=== PATIENT | male | born 1935 | race Caucasian/White ===

== ENCOUNTER → 2017-03-18 | Outpatient (CLI) | payer OTHER, MEDICARE ==
[~2017-03-18] MED LIST: AMLO-110 PO; ASPEC325 PO; ASPI81TA28 PO; ATEN-175 PO; CHOL100010 PO; EPP3/2 IM; FINA5TAB PO; HYDC25 PO; LATA0.009 OPB; LISI40TA PO; NTRGSL/4 UT; TIMO0.2527 OPB; ZCR40 PO
[2017-03-18 11:00] LABS: BASO % 0.7 %; BASO ABS # 0.04 K/uL (0-0.2); COMPLETE YES; EOS % 3.3 %; HEMATOCRIT 43.3 % (42-52); IG% 0.7 %; LYMPH % 14.8 %; LYMPH ABS # 0.85 K/uL (1.2-3.4); MEAN CELL VOLUME 88.2 fL (80-100); MEAN CORPUSCULAR HEMOGLOBIN 29.5 pg (25-34); MEAN CORPUSCULAR HGB CONC 33.5 g/dl (32-36); MEAN PLATELET VOLUME 9.9 fL (7.4-10.4); MONO % 12.2 %; NEUT % 68.3 %; PLATELET COUNT 209 K/uL (130-400); RED BLOOD COUNT 4.91 M/uL (4.7-6.1); WHITE BLOOD COUNT 5.75 K/uL (4.8-10.8)
[2017-03-18 11:20] LABS: ALT/SGPT 23 U/L (12-78); BLOOD UREA NITROGEN 24 mg/dl (7-18); BUN/CREATININE RATIO 22.2 (10-20); CARBON DIOXIDE 29 mmol/L (21-32); CHLORIDE 103 mmol/L (98-107); CHOLESTEROL 143 mg/dl (0-200); GLUCOSE 90 mg/dl (70-99); POTASSIUM 3.7 mmol/L (3.5-5.1); SODIUM 140 mmol/L (136-145)
[2017-03-18 11:22] LABS: CALCIUM 9.2 mg/dl (8.5-10.1)
[2017-03-18 11:31] LABS: ALB/GLOB RATIO 1.1 (0.9-2); ALKALINE PHOSPHATASE 43 U/L (45-117); AST/SGOT 22 U/L (15-37); CHOLESTEROL/HDL RATIO 3.6; HDL CHOLESTEROL 40 mg/dl; LDL CHOLESTEROL CALCULATED 77 mg/dl; TRIGLYCERIDES 129 mg/dl (0-150); VERY LOW DENSITY LIPOPROT CALC 26 mg/dl
== END | disposition home or self-care (01) ==
LOC: C.LABBC 08:30
PROVIDERS: ATTEND Internal Medicine Geriatric Medicine
DX: I10 Essential (primary) hypertension (principal); E78.5 Hyperlipidemia, unspecified; R10.9 Unspecified abdominal pain; R19.7 Diarrhea, unspecified; I25.10 Atherosclerotic heart disease of native coronary artery without angina pectoris; C82.90 Follicular lymphoma, unspecified, unspecified site

== ENCOUNTER → 2017-04-08 | Outpatient (CLI) | payer OTHER, MEDICARE | END | disposition home or self-care (01) | LOC: C.LABBC 07:42 | PROVIDERS: ATTEND Internal Medicine Geriatric Medicine | DX: K58.9 Irritable bowel syndrome, unspecified (principal); R19.7 Diarrhea, unspecified; A04.7 Enterocolitis due to Clostridium difficile ==

== ENCOUNTER → 2017-04-23 | Day surgery (SDC) | payer OTHER, MEDICARE ==
[2017-04-21 14:03] VITALS: Ht 180.3 cm; Wt 72.3 kg
[~2017-04-23] VITALS: Ht 180.3 cm; Wt 72.3 kg
[~2017-04-23] MED LIST changes: -ASPEC325 PO; -EPP3/2 IM; +LIDOCAINE HCL 2% 2 ML VIAL (20MG/ML) ONE; +PROPOFOL IV EMULSION 10 MG/ML 20 ML VIAL IV ONE
--- NOTE | 2017-04-23 13:34 | Endo History and Physical ---
History & Physical Date of Service: Apr 23, 2017. Chief Complaint: weight loss Referring Physician: Dr Kami Gunter History of Present Illness For EGD Past Medical History Male Genitourinary Prob., Glaucoma, Cancer, High Cholesterol, CABG, Heart Disease, Hypertension Past Surgical History Hx Cardiac Surgery: Yes (CABG X4 VESSELS) Hx Internal Defibrillator: No Hx Pacemaker: No Hx Abdominal Surgery: Yes (GALLBLADDER) Hx of Implantable Prosthesis: No Hx Post-Op Nausea and Vomiting: No Hx Cancer Surgery: No Hx Thoracic Surgery: No Hx Orthopedic: No Hx Urinary Tract Surgery: No Family History None Social History Smoking Status: Never Smoker Hx Substance Use: No Hx Alcohol Use: No Allergies Coded Allergies: Penicillins (Verified Allergy, Mild, RASH, 04/21/17) Current Medications Reported Home Medications Medications Dose Route/Sig Max Daily Dose Days Date Category Dose Instructions Aspirin Ec (Aspirin) 81 Mg Tab 81 Mg PO QAM 04/21/17 Reported Vitamin D (Cholecalciferol) 1,000 Inter.unit Tab 1,000 Inter.unit PO 2XWK 06/17/16 Reported WEDNESDAY AND WEDNESDAY Simvastatin 40 Mg Tab 40 Mg PO HS 11/25/14 Reported Nitrostat (Nitroglycerin) 0.4 Mg Tab 0.4 Mg UT PRN 09/08/11 Reported Norvasc (Amlodipine Besylate) 5 Mg Tab 5 Mg PO QPM 09/08/10 Reported Xalatan 0.005% Oph (Latanoprost) Soln 1 Drop OPB HS 07/31/07 Reported Timoptic-Xe 0.25% Oph (Timolol Maleate) Soln 1 Drop OPB QAM 07/31/07 Reported Zestril (Lisinopril) 40 Mg Tab 40 Mg PO QAM 08/23/07 Reported Hctz * (Hydrochlorothiazide) 25 Mg Tab 25 Mg PO QAM 07/30/07 Reported Proscar (Finasteride) 5 Mg Tab 5 Mg PO QPM 07/30/07 Reported Tenormin (Atenolol) 100 Mg Tab 100 Mg PO QAM 07/30/07 Reported Vital Signs Weight (Kilograms): 72.27 Height (Feet): 5 Height (Inches): 11 Physical Exam General Appearance: WD/WN Respiratory/Chest: Respiratory effort: no dyspnea Cardiovascular: Heart Auscultation: RRR Abdomen: Inspection & Palpation: soft Assessment and Plan Weight loss for EGD
--- NOTE | 2017-04-23 13:53 | Discharge Instructions ---
Endoscopy Patient Instructions Date / Procedure(s) Performed Apr 23, 2017. EGD Allergy Information Coded Allergies: Penicillins (Verified Allergy, Mild, RASH, 04/21/17) Discharge Date / Findings Apr 23, 2017. Pyloric stenosis Medication Instructions Stopped Medication(s): took ASA yesterday Restart Stopped Medication(s): resume meds Reported Home Medications Medications Dose Route/Sig Max Daily Dose Days Date Category Dose Instructions Aspirin Ec (Aspirin) 81 Mg Tab 81 Mg PO QAM 04/21/17 Reported Vitamin D (Cholecalciferol) 1,000 Inter.unit Tab 1,000 Inter.unit PO 2XWK 06/17/16 Reported WEDNESDAY AND WEDNESDAY Simvastatin 40 Mg Tab 40 Mg PO HS 11/25/14 Reported Nitrostat (Nitroglycerin) 0.4 Mg Tab 0.4 Mg UT PRN 09/08/11 Reported Norvasc (Amlodipine Besylate) 5 Mg Tab 5 Mg PO QPM 09/08/10 Reported Xalatan 0.005% Oph (Latanoprost) Soln 1 Drop OPB HS 07/31/07 Reported Timoptic-Xe 0.25% Oph (Timolol Maleate) Soln 1 Drop OPB QAM 07/31/07 Reported Zestril (Lisinopril) 40 Mg Tab 40 Mg PO QAM 08/23/07 Reported Hctz * (Hydrochlorothiazide) 25 Mg Tab 25 Mg PO QAM 07/30/07 Reported Proscar (Finasteride) 5 Mg Tab 5 Mg PO QPM 07/30/07 Reported Tenormin (Atenolol) 100 Mg Tab 100 Mg PO QAM 07/30/07 Reported Provider Instructions Activity Restrictions - No exercising or heavy lifting for 24 hours. - Do not drink alcohol the day of the procedure. - Do not drive a car or operate machinery until the day after the procedure. - Do not make any important decisions or sign important papers in 24 hours after the procedure. Following Day: - Return to full activity which may include returning to work/school. Diet Start your diet with liquids and light foods (jello, soup, juice, toast). Then eat your usual diet if not nauseated. Treatment For Common After Affects For mild abdominal pain, bloating, or excessive gas: - Rest - Eat lightly - Lie on right side Follow-Up Information Follow-up with Dr. Audi Gunter as scheduled Anesthesia Information What You Should Know You have had a procedure that required some medicine to reduce anxiety and discomfort. This treatment is called moderate sedation. After receiving the treatment, you may be sleepy, but you will be able to breathe on your own. The effects of the treatment may last for several hours. Follow these instructions along with Activity/Diet recommendations noted above: * Do NOT do anything where dizziness or clumsiness would be dangerous. * Rest quietly at home today, then you can be up and about tomorrow. * Have a responsible person stay with you the rest of today. * You may have had an I.V. today. If so, you may take the dressing off later today. Recommendations Call your doctor if: * Trouble breathing * Continuous vomiting for more than 24 hours * Temperature above 101 degrees * Severe abdominal pain or bloating * Pain not relieved by pain medicine ordered * There is increased drainage or redness from any incision * A large amount of rectal bleeding greater than 2-3 tablespoons. (If you had a polyp/s removed or have hemorrhoids, a small amount of blood - from the rectum is to be expected.) * You have any unanswered questions or concerns. IN THE EVENT OF A SERIOUS EMERGENCY, GO TO THE NEAREST EMERGENCY ROOM Your discharge instructions were prepared by provider Rito Park. Patient Instructions Signature Page Berta Gongora Patient (or Guardian) Signature/Date: I have read and understand the instructions given to me by my caregivers. Caregiver/RN/Doctor Signature/Date: The above-named patient and/or guardian has received patient instructions on this date. + Original Patient Signature Page (only) stays with chart. Please make copy for patient.
--- NOTE | 2017-04-23 13:58 | GI REPORT ---
Procedure Date: 04/23/2017 1:11 PM Procedure: Upper GI endoscopy Indications: Weight loss Medicines: Propofol total dose 220 mg IV, Lidocaine 80 mg IV Complications: No immediate complications. Estimated Blood Loss: Estimated blood loss was minimal. Procedure: Pre-Anesthesia Assessment: - Prior to the procedure, a History and Physical was performed, and patient medications, allergies and sensitivities were reviewed. The patient's tolerance of previous anesthesia was reviewed. - The risks and benefits of the procedure and the sedation options and risks were discussed with the patient. All questions were answered and informed consent was obtained. After obtaining informed consent, the endoscope was passed under direct vision. Throughout the procedure, the patient's blood pressure, pulse, and oxygen saturations were monitored continuously. The scope was introduced through the mouth, and advanced to the second part of duodenum. The upper GI endoscopy was technically difficult and complex due to abnormal anatomy. The patient tolerated the procedure well. Findings: The examined esophagus was normal. A benign-appearing, intrinsic severe stenosis was found at the pylorus. This was non-traversed. A TTS dilator was passed through the scope. Dilation with a 15-16.5-18 mm pyloric balloon dilator was performed. The dilation site was examined following endoscope reinsertion and showed complete resolution of luminal narrowing. Estimated blood loss was minimal. The 2nd part of the duodenum was normal. Biopsies for histology were taken with a cold forceps for evaluation of celiac disease. Estimated blood loss was minimal. Impression: - Normal esophagus. - Gastric stenosis was found at the pylorus. Dilated. - Normal 2nd part of the duodenum. Biopsied. Recommendation: - Discharge patient to home (ambulatory). - Continue present medications. - Await pathology results. - Return to primary care physician PRN. Rito Park M.D. Rito Park MD 04/23/2017 1:58:07 PM This report has been signed electronically. Note Initiated On: 04/23/2017 1:11 PM I attest to the content of the Intraoperative Record and orders documented therein, exceptions below
[2017-04-23 14:33] VITALS: BP 134/72; PULSE 57; O2SAT 98
--- NOTE | 2017-04-23 14:49 | Anesthesiology Progress Note ---
Anesthesia Post Op Note Date & Time Apr 23, 2017 at 14:49 Vital Signs Pain Intensity: 0 Vital Signs Past 12 Hours Date Time Temp Pulse Resp B/P (MAP) Pulse Ox O2 Delivery O2 Flow Rate FiO2 04/23/17 14:15 55 20 121/62 (81) 97 Room Air 04/23/17 14:00 54 20 120/71 (87) 97 Room Air 04/23/17 13:20 36.7 55 18 170/90 (116) 96 Room Air Notes Mental Status: alert / awake / arousable, participated in evaluation Pt Amnestic to Procedure: Yes Nausea / Vomiting: adequately controlled Pain: adequately controlled Airway Patency, RR, SpO2: stable & adequate BP & HR: stable & adequate Hydration State: stable & adequate Anesthetic Complications: no major complications apparent
== END | disposition home or self-care (01) ==
LOC: C.GI 12:49
PROVIDERS: ATTEND Internal Medicine Gastroenterology
DX: R63.4 Abnormal weight loss (principal); K22.2 Esophageal obstruction; E78.00 Pure hypercholesterolemia, unspecified; I10 Essential (primary) hypertension; Z95.1 Presence of aortocoronary bypass graft; Z90.49 Acquired absence of other specified parts of digestive tract; Z79.82 Long term (current) use of aspirin; K31.1 Adult hypertrophic pyloric stenosis

== ENCOUNTER → 2017-11-17 | Outpatient (CLI) | payer OTHER, MEDICARE ==
[~2017-11-17] MED LIST changes: -LIDOCAINE HCL 2% 2 ML VIAL (20MG/ML) ONE; -PROPOFOL IV EMULSION 10 MG/ML 20 ML VIAL IV ONE
[2017-11-17 09:31] LABS: BASO % 0.5 %; BASO ABS # 0.04 K/uL (0-0.2); EOS % 4.4 %; EOS ABS # 0.35 K/uL (0-0.5); HEMATOCRIT 42.8 % (42-52); HEMOGLOBIN 14.4 g/dL (14.0-18.0); IG# 0.05 K/uL (0.00-0.02); LYMPH % 14.5 %; LYMPH ABS # 1.15 K/uL (1.2-3.4); MEAN CORPUSCULAR HEMOGLOBIN 29.9 pg (25-34); MEAN CORPUSCULAR HGB CONC 33.6 g/dl (32-36); MEAN PLATELET VOLUME 9.7 fL (7.4-10.4); MONO % 13.4 %; MONO ABS # 1.06 K/uL (0.11-0.59); NEUT % 66.6 %; NEUT ABS # 5.28 K/uL (1.4-6.5); PLATELET COUNT 189 K/uL (130-400); RED CELL DISTRIBUTION WIDTH CV 13.8 % (11.5-14.5); RED CELL DISTRIBUTION WIDTH SD 44.9 fL (36.4-46.3); WHITE BLOOD COUNT 7.93 K/uL (4.8-10.8)
[2017-11-17 10:10] LABS: BLOOD UREA NITROGEN 27 mg/dl (7-18); CALCIUM 9.5 mg/dl (8.5-10.1); CARBON DIOXIDE 32 mmol/L (21-32); CREATININE 1.09 mg/dl (0.60-1.40); GLUCOSE 89 mg/dl (70-99); POTASSIUM 3.6 mmol/L (3.5-5.1); SODIUM 136 mmol/L (136-145)
== END | disposition home or self-care (01) ==
LOC: C.LAB 08:48
PROVIDERS: ATTEND Internal Medicine Geriatric Medicine
DX: I10 Essential (primary) hypertension (principal); I25.10 Atherosclerotic heart disease of native coronary artery without angina pectoris; C82.90 Follicular lymphoma, unspecified, unspecified site

== ENCOUNTER → 2018-01-06 | Outpatient (CLI) | payer OTHER, MEDICARE | END | disposition home or self-care (01) | LOC: C.LAB 08:01 | PROVIDERS: ATTEND Internal Medicine Cardiovascular Disease | DX: I10 Essential (primary) hypertension (principal); I25.10 Atherosclerotic heart disease of native coronary artery without angina pectoris; E78.5 Hyperlipidemia, unspecified ==

== ENCOUNTER → 2018-05-16 | Outpatient (CLI) | payer OTHER, MEDICARE ==
[~2018-05-16] MED LIST changes: -AMLO-110 PO; +AMLO5TAB3 PO
[2018-05-16 13:52] LABS: BASO % 0.7 %; BASO ABS # 0.04 K/uL (0-0.2); EOS % 3.8 %; EOS ABS # 0.21 K/uL (0-0.5); HEMATOCRIT 39.1 % (42-52); HEMOGLOBIN 13.2 g/dL (14.0-18.0); IG# 0.03 K/uL (0.00-0.02); LYMPH % 18.7 %; LYMPH ABS # 1.03 K/uL (1.2-3.4); MEAN CELL VOLUME 88.1 fL (80-100); MEAN CORPUSCULAR HEMOGLOBIN 29.7 pg (25-34); MEAN CORPUSCULAR HGB CONC 33.8 g/dl (32-36); MEAN PLATELET VOLUME 9.9 fL (7.4-10.4); MONO % 11.8 %; MONO ABS # 0.65 K/uL (0.11-0.59); NEUT % 64.5 %; NEUT ABS # 3.55 K/uL (1.4-6.5); PLATELET COUNT 191 K/uL (130-400); RED CELL DISTRIBUTION WIDTH CV 13.8 % (11.5-14.5); RED CELL DISTRIBUTION WIDTH SD 43.9 fL (36.4-46.3); WHITE BLOOD COUNT 5.51 K/uL (4.8-10.8)
== END | disposition home or self-care (01) ==
LOC: C.LABBC 10:10
PROVIDERS: ATTEND Family Medicine Adult Medicine
DX: C82.90 Follicular lymphoma, unspecified, unspecified site (principal); K31.1 Adult hypertrophic pyloric stenosis; R53.83 Other fatigue

== ENCOUNTER → 2018-06-08 | Day surgery (SDC) | payer OTHER, MEDICARE ==
[2018-05-31 13:54] VITALS: Ht 180.3 cm; Wt 76.8 kg
[~2018-06-08] VITALS: Ht 180.3 cm; Wt 76.8 kg
[~2018-06-08] MED LIST changes: -CHOL100010 PO; +CHOL1TAB53 PO; +EPP3/2 IM; -HYDC25 PO; +HYDR25TA4 PO; +LATA0.009 OP; -LATA0.009 OPB; +LIDOCAINE HCL 2% 2 ML VIAL (20MG/ML) ONE; +MIRT1TAB27 PO; +PROB1TAB16 PO; +PROPOFOL IV EMULSION 10 MG/ML 20 ML VIAL ONE; +PSYL48.59 PO; -TIMO0.2527 OPB; +TMPXEOPS OPB
--- NOTE | 2018-06-08 13:28 | Endo History and Physical ---
History & Physical Date of Service: Jun 08, 2018. Chief Complaint: dysphagia Referring Physician: Dr Calvin History of Present Illness For EGD Past Medical History Male Genitourinary Prob., Glaucoma, Cancer, High Cholesterol, CABG, Heart Disease, Hypertension Past Surgical History Hx Cardiac Surgery: Yes [place] [place] Hx Internal Defibrillator: No Hx Pacemaker: No Hx Abdominal Surgery: Yes (GALLBLADDER) Hx Post-Op Nausea and Vomiting: No Hx Cancer Surgery: No Hx Thoracic Surgery: No Hx Orthopedic: No Hx Urinary Tract Surgery: No Family History None Social History Smoking Status: Never Smoker Hx Substance Use: No Hx Alcohol Use: No Allergies Coded Allergies: BEE STING (Verified Allergy, Severe, ANAPHYLAXIS, 05/31/18) Penicillins (Verified Allergy, Mild, RASH, 05/31/18) Current Medications Reported Home Medications Medications Dose Route/Sig Max Daily Dose Days Date Category Epipen (Epinephrine) 0.3 Mg/0.3 Ml Inj 0.3 Mg IM UD 05/31/18 Reported Metamucil (Psyllium) 48.57 % Pow 1 Dose PO DAILY 05/31/18 Reported Probiotic (Probiotic Product) 1 Tab Tab 1 Tab PO DAILY 05/31/18 Reported Nitrostat (Nitroglycerin) 0.4 Mg Tab 0.4 Mg UT PRN 05/31/18 Reported Mirtazapine 7.5 Mg Tab 1 Tab PO HS 05/31/18 Reported D 1000 (Cholecalciferol) 1,000 Unit Tab 1 Tab PO 2XWK 05/31/18 Reported Xalatan 0.005% Oph Tamera (Latanoprost) 0.005 % Tamera 1 Drops OP HS 05/31/18 Reported Timolol Gfs 0.5% (Generic For Timoptic-Xe) (Timolol Maleate) 74 Drops/5 Ml Soln 1 Drop OPB QAM 05/31/18 Reported Hctz (Hydrochlorothiazide) 25 Mg Tab 25 Mg PO QAM 05/31/18 Reported Aspirin Ec (Aspirin) 81 Mg Tab 81 Mg PO QAM 04/21/17 Reported Simvastatin 40 Mg Tab 40 Mg PO HS 11/25/14 Reported Norvasc (Amlodipine Besylate) 5 Mg Tab 5 Mg PO QPM 09/08/10 Reported Zestril (Lisinopril) 40 Mg Tab 40 Mg PO QAM 08/23/07 Reported Proscar (Finasteride) 5 Mg Tab 5 Mg PO QPM 07/30/07 Reported Tenormin (Atenolol) 100 Mg Tab 100 Mg PO QAM 07/30/07 Reported Vital Signs Weight (Kilograms): 76.82 Height (Feet): 5 Height (Inches): 11 Physical Exam General Appearance: WD/WN Respiratory/Chest: Respiratory effort: no dyspnea Cardiovascular: Heart Auscultation: RRR Abdomen: Inspection & Palpation: soft Assessment and Plan Dysphagia for EGD
--- NOTE | 2018-06-08 13:59 | Discharge Instructions ---
Endoscopy Patient Instructions Date / Procedure(s) Performed Jun 08, 2018. EGD Allergy Information Coded Allergies: BEE STING (Verified Allergy, Severe, ANAPHYLAXIS, 05/31/18) Penicillins (Verified Allergy, Mild, RASH, 05/31/18) Discharge Date / Findings Jun 08, 2018. Schatzki ring, pyloric stenosis Medication Instructions Stopped Medication(s): Patient held all meds. Restart Stopped Medication(s): resume meds Reported Home Medications Medications Dose Route/Sig Max Daily Dose Days Date Category Epipen (Epinephrine) 0.3 Mg/0.3 Ml Inj 0.3 Mg IM UD 05/31/18 Reported Metamucil (Psyllium) 48.57 % Pow 1 Dose PO DAILY 05/31/18 Reported Probiotic (Probiotic Product) 1 Tab Tab 1 Tab PO DAILY 05/31/18 Reported Nitrostat (Nitroglycerin) 0.4 Mg Tab 0.4 Mg UT PRN 05/31/18 Reported Mirtazapine 7.5 Mg Tab 1 Tab PO HS 05/31/18 Reported D 1000 (Cholecalciferol) 1,000 Unit Tab 1 Tab PO 2XWK 05/31/18 Reported Xalatan 0.005% Oph Tamera (Latanoprost) 0.005 % Tamera 1 Drops OP HS 05/31/18 Reported Timolol Gfs 0.5% (Generic For Timoptic-Xe) (Timolol Maleate) 74 Drops/5 Ml Soln 1 Drop OPB QAM 05/31/18 Reported Hctz (Hydrochlorothiazide) 25 Mg Tab 25 Mg PO QAM 05/31/18 Reported Aspirin Ec (Aspirin) 81 Mg Tab 81 Mg PO QAM 04/21/17 Reported Simvastatin 40 Mg Tab 40 Mg PO HS 11/25/14 Reported Norvasc (Amlodipine Besylate) 5 Mg Tab 5 Mg PO QPM 09/08/10 Reported Zestril (Lisinopril) 40 Mg Tab 40 Mg PO QAM 08/23/07 Reported Proscar (Finasteride) 5 Mg Tab 5 Mg PO QPM 07/30/07 Reported Tenormin (Atenolol) 100 Mg Tab 100 Mg PO QAM 07/30/07 Reported Provider Instructions Activity Restrictions - No exercising or heavy lifting for 24 hours. - Do not drink alcohol the day of the procedure. - Do not drive a car or operate machinery until the day after the procedure. - Do not make any important decisions or sign important papers in 24 hours after the procedure. Following Day: - Return to full activity which may include returning to work/school. Diet Start your diet with liquids and light foods (jello, soup, juice, toast). Then eat your usual diet if not nauseated. Treatment For Common After Affects For mild abdominal pain, bloating, or excessive gas: - Rest - Eat lightly - Lie on right side Follow-Up Information Follow-up with Dr. Audi Gunter as scheduled Anesthesia Information What You Should Know You have had a procedure that required some medicine to reduce anxiety and discomfort. This treatment is called moderate sedation. After receiving the treatment, you may be sleepy, but you will be able to breathe on your own. The effects of the treatment may last for several hours. Follow these instructions along with Activity/Diet recommendations noted above: * Do NOT do anything where dizziness or clumsiness would be dangerous. * Rest quietly at home today, then you can be up and about tomorrow. * Have a responsible person stay with you the rest of today. * You may have had an I.V. today. If so, you may take the dressing off later today. Recommendations Call your doctor if: * Trouble breathing * Continuous vomiting for more than 24 hours * Temperature above 101 degrees * Severe abdominal pain or bloating * Pain not relieved by pain medicine ordered * There is increased drainage or redness from any incision * A large amount of rectal bleeding greater than 2-3 tablespoons. (If you had a polyp/s removed or have hemorrhoids, a small amount of blood - from the rectum is to be expected.) * You have any unanswered questions or concerns. IN THE EVENT OF A SERIOUS EMERGENCY, GO TO THE NEAREST EMERGENCY ROOM Your discharge instructions were prepared by provider Rito Park. Patient Instructions Signature Page Berta Gongora Patient (or Guardian) Signature/Date: I have read and understand the instructions given to me by my caregivers. Caregiver/RN/Doctor Signature/Date: The above-named patient and/or guardian has received patient instructions on this date. + Original Patient Signature Page (only) stays with chart. Please make copy for patient.
--- NOTE | 2018-06-08 14:13 | Anesthesiology Progress Note ---
Anesthesia Post Op Note Date & Time Jun 08, 2018 at 14:12 Vital Signs Pain Intensity: 0 Vital Signs Past 12 Hours Date Time Temp Pulse Resp B/P (MAP) Pulse Ox O2 Delivery O2 Flow Rate FiO2 06/08/18 14:02 55 16 103/51 (68) 97 Room Air 06/08/18 13:29 36.7 58 16 151/64 (93) 94 Room Air Notes Mental Status: alert / awake / arousable, participated in evaluation Pt Amnestic to Procedure: Yes Nausea / Vomiting: adequately controlled Pain: adequately controlled Airway Patency, RR, SpO2: stable & adequate BP & HR: stable & adequate Hydration State: stable & adequate Anesthetic Complications: no major complications apparent
--- NOTE | 2018-06-08 14:14 | GI REPORT ---
Patient Name: Berta Gongora Procedure Date: 06/08/2018 1:35 PM Date of : 1935 Admit Type: Outpatient Age: 83 Gender: Male Attending MD: Rito Park MD Procedure: Upper GI endoscopy Providers: Rito Park MD Referring MD: Audi Gunter Indications: Dysphagia Medicines: Propofol total dose 220 mg IV, Lidocaine 80 mg IV Complications: No immediate complications. Estimated Blood Loss: Estimated blood loss was minimal. Procedure: Pre-Anesthesia Assessment: - Prior to the procedure, a History and Physical was performed, and patient medications, allergies and sensitivities were reviewed. The patient's tolerance of previous anesthesia was reviewed. - The risks and benefits of the procedure and the sedation options and risks were discussed with the patient. All questions were answered and informed consent was obtained. After obtaining informed consent, the endoscope was passed under direct vision. Throughout the procedure, the patient's blood pressure, pulse, and oxygen saturations were monitored continuously. The Scope was introduced through the mouth, and advanced to the second part of duodenum. The upper GI endoscopy was accomplished without difficulty. The patient tolerated the procedure well. Findings: A moderate Schatzki ring (acquired) was found at the gastroesophageal junction. A TTS dilator was passed through the scope. Dilation with a 15-16.5-18 mm balloon dilator was performed to 18 mm. The dilation site was examined following endoscope reinsertion and showed moderate improvement in luminal narrowing. Estimated blood loss was minimal. A benign-appearing, intrinsic moderate stenosis was found at the pylorus. This was non-traversed. A TTS dilator was passed through the scope. Dilation with an 18 mm pyloric balloon dilator was performed. The dilation site was examined following endoscope reinsertion and showed complete resolution of luminal narrowing. Estimated blood loss was minimal. The examined duodenum was normal. Impression: - Moderate Schatzki ring. Dilated. - Gastric stenosis was found at the pylorus. Dilated. - Normal examined duodenum. - No specimens collected. Recommendation: - Discharge patient to home (ambulatory). - Continue present medications. - Return to primary care physician PRN. Rito Park M.D. Rito Park MD 06/08/2018 2:14:11 PM This report has been signed electronically. Note Initiated On: 06/08/2018 1:35 PM Number of Addenda: 0 I attest to the content of the Intraoperative Record and orders documented therein, exceptions below {[id number]}
[2018-06-08 14:32] VITALS: BP 137/62; PULSE 51; O2SAT 96
== END | disposition home or self-care (01) ==
LOC: C.GI 12:55
PROVIDERS: ATTEND Internal Medicine Gastroenterology
DX: K22.2 Esophageal obstruction (principal); K31.1 Adult hypertrophic pyloric stenosis; R13.10 Dysphagia, unspecified; C85.90 Non-Hodgkin lymphoma, unspecified, unspecified site; I25.10 Atherosclerotic heart disease of native coronary artery without angina pectoris; H40.9 Unspecified glaucoma; E78.00 Pure hypercholesterolemia, unspecified; I10 Essential (primary) hypertension; Z95.1 Presence of aortocoronary bypass graft; Z88.0 Allergy status to penicillin; Z91.030 Bee allergy status; Z79.899 Other long term (current) drug therapy; Z79.82 Long term (current) use of aspirin